=== PATIENT | male | born 1930 | race African-American/Black ===

== ENCOUNTER 2016-10-11 15:54 | Inpatient (IN) | payer MEDICARE, OTHER ==
[~2016-10-11] VITALS: Ht 175.3 cm; Wt 56.7 kg
[2016-10-11] MEDS ORDERED: SODIUM CHLORIDE 0.9% 1000ML BAG (SEPSIS BOLUS) IV ONE (16:45)
[2016-10-11 17:17] LABS: BASOPHILS % 0.3 % (0.0-2.0); HEMATOCRIT. 36.1 % (42.0-52.0); HEMOGLOBIN. 12.4 g/dL (14.0-18.0); LYMPHOCYTES % 10.6 % (20.0-50.0); MEAN CORPUSCULAR HEMOGLOBIN 31.4 pg (28.0-32.0); MEAN CORPUSCULAR VOLUME 91.1 fL (80.0-94.0); MEAN PLATELET VOLUME 7.7 fl (7.4-10.4); MONOCYTES % 10.2 % (2.0-8.0); NEUTROPHILS % 78.9 % (40.0-76.0); PLATELET 169 x1000/uL (130-400); RED BLOOD CELL COUNT 3.96 mill/uL (4.7-6.1); RED CELL DISTRIBUTION WIDTH 14.1 % (11.6-14.6)
[2016-10-11 17:19] LABS: INR 1.1; PROTHROMBIN TIME 11.3 sec (9.4-11.6)
[2016-10-11 17:29] LABS: CARBON DIOXIDE 24 mEq/L (21-32); CHLORIDE 107 mEq/L (98-107); TROPONIN I 0.03 ng/mL (0.00-0.04)
[2016-10-11] MEDS ORDERED: ACETAMINOPHEN 325MG TABLET PO ONE (17:30)
[2016-10-11] MEDS ORDERED: POTASSIUM CHLORIDE 20MEQ TABLET SR PO SCH (19:30)
[2016-10-11] MEDS ORDERED: POTASSIUM CHLORIDE INJ 40 MEQ in DEXT 5% WATER 250 ML IV SCH (19:30)
[2016-10-11 19:33] LABS: CLARITY URINE CLEAR (CLEAR); COLOR URINE YELLOW (YELLOW); GLUCOSE URINE NEGATIVE (NEGATIVE); KETONES URINE NEGATIVE (NEGATIVE); LEUKOCYTE ESTERASE URINE NEGATIVE (NEGATIVE); NITRITE URINE NEGATIVE (NEGATIVE); OCCULT BLOOD URINE NEGATIVE (NEGATIVE); PROTEIN URINE 1+ (NEGATIVE); SPECIFIC GRAVITY URINE 1.013 (1.005-1.030)
[2016-10-11] MEDS ORDERED: DEXT 5%/LACTATED RINGERS 1,000 ML IV ONE (21:15)
[2016-10-11] MEDS ORDERED: NICARDIPINE 50 MG in SODIUM CHLORIDE 0.9% 230 ML IV PRN ×9 (21:15→21:30)
[2016-10-11] MEDS ORDERED: PHENYTOIN SODIUM 100MG/2ML VIAL IV SCH ×2 (22:00)
[2016-10-11 22:31] VITALS: BP 75/50
[2016-10-11 23:30] VITALS: BP 150/88
[2016-10-11 23:47] VITALS: BP 149/72
[2016-10-12] VITALS (82 sets, daily range): BP systolic 99–181; BP diastolic 30–107
[2016-10-12] MEDS ORDERED: NICARDIPINE 100 MG in SODIUM CHLORIDE 0.9% 60 ML IV PRN (04:15)
[2016-10-12] MEDS ORDERED: ACETAMINOPHEN 650MG/20.3ML UDC PO PRN (04:15)
[2016-10-12] MEDS: DEXT 5%/LACTATED RINGERS 1,000 ML IV SCH ×2 (05:13→11:45)
[2016-10-12] MEDS: PHENYTOIN SODIUM 100 MG in SODIUM CHLORIDE 0.9% 100 ML IV SCH ×2 (05:13→13:06)
[2016-10-12 05:56] LABS: HEMATOCRIT 29.2 % (42.0-52.0); HEMOGLOBIN 10.3 g/dL (14.0-18.0); MEAN CORPUSCULAR HEMOGLOBIN 31.5 pg (28.0-32.0); MEAN CORPUSCULAR VOLUME 89.4 fL (80.0-94.0); PLATELET 143 x1000/uL (130-400); RED BLOOD CELL COUNT 3.27 mill/uL (4.7-6.1)
[2016-10-12] MEDS ORDERED: PHENYTOIN SODIUM 100MG/2ML VIAL IV SCH (06:00)
[2016-10-12 06:32] LABS: CARBON DIOXIDE 25 mEq/L (21-32); CHLORIDE 110 mEq/L (98-107)
[2016-10-12] MEDS ORDERED: GELATIN SPONGE,ABSORBABLE SZ 100 ONE (06:45)
[2016-10-12] MEDS ORDERED: POVIDONE-IODINE OINT 28.4GM TOP ONE (06:45)
[2016-10-12] MEDS ORDERED: BACITRACIN 50,000 UNITS/VIAL ONE (06:46)
[2016-10-12] MEDS ORDERED: LIDOCAINE HCL 1%/EPI 1:200,000 30 ML VIAL ONE (06:46)
[2016-10-12] MEDS ORDERED: NORMAL SALINE 0.9% 10 ML SYR ONE (06:46)
[2016-10-12] MEDS ORDERED: THROMBIN (BOVINE) 5000 UNITS/VIAL TOP ONE (06:46)
[2016-10-12] MEDS ORDERED: BACITRACIN ZINC 15GM TUBE TOP ONE (06:46)
[2016-10-12] MEDS ORDERED: POTASSIUM CHLORIDE 20MEQ TABLET SR PO SCH (07:30)
[2016-10-12] MEDS ORDERED: SODIUM CHLORIDE 0.9% 10ML VIAL ONE (07:47)
[2016-10-12] MEDS ORDERED: PHENYLEPHRINE HCL 10 MG/ML 1ML (IV VIAL) IV ONE (07:47)
[2016-10-12] MEDS ORDERED: EPHEDRINE SULFATE 50MG/ML VIAL ONE (07:47)
[2016-10-12] MEDS ORDERED: SUCCINYLCHOLINE CHLORIDE 200MG/10ML VIAL IV ONE (07:47)
[2016-10-12] MEDS ORDERED: PROPOFOL 200MG/20ML VIAL IV ONE (07:47)
[2016-10-12] MEDS ORDERED: LIDOCAINE HCL 1% 20ML VIAL (Pyxis) INJ ONE (07:47)
[2016-10-12] MEDS ORDERED: ROCURONIUM BROMIDE 10MG/ML VIAL 5ML IV ONE (07:47)
[2016-10-12] MEDS ORDERED: CEFAZOLIN SODIUM 1000MG/VIAL ONE (07:48)
[2016-10-12] MEDS ORDERED: POTASSIUM CHLORIDE INJ 40 MEQ in DEXT 5% WATER 250 ML IV SCH (08:00)
[2016-10-12] MEDS ORDERED: DEXAMETHASONE 4MG/ML 1ML VIAL ONE (08:42)
[2016-10-12] MEDS ORDERED: ONDANSETRON HCL 4MG/2ML VIAL ONE (08:42)
[2016-10-12] MEDS ORDERED: NEOSTIGMINE METHYLSULFATE 1MG/ML 10 ML VIAL ONE (09:04)
[2016-10-12] MEDS ORDERED: GLYCOPYRROLATE 0.2 MG/ML 2ML VIAL ONE (09:04)
[2016-10-12] MEDS ORDERED: MORPHINE SULFATE 2 MG/ML CPJ (NOT FOR IM USE) IV PRN (09:45)
[2016-10-12] MEDS: MORPHINE SULFATE 2 MG/ML CPJ (NOT FOR IM USE) IV PRN ×2 (10:22→17:40)
[2016-10-12] MEDS: CEFAZOLIN 1000MG PREMIX 50 ML IV SCH ×2 (13:06→21:00)
[2016-10-12] MEDS ORDERED: PHENYTOIN SODIUM 100MG/2ML VIAL IV ONE ×2 (13:06→14:21)
[2016-10-12] MEDS ORDERED: CEFAZOLIN SODIUM 1000MG/VIAL IV SCH (14:00)
[2016-10-12] MEDS: NICARDIPINE 100 MG in SODIUM CHLORIDE 0.9% 60 ML IV PRN (19:59)
[2016-10-12] MEDS: PHENYTOIN SODIUM 100MG/2ML VIAL IV SCH (21:00)
[2016-10-13] VITALS (80 sets, daily range): BP systolic 74–185; BP diastolic 25–103
[2016-10-13] MEDS: NICARDIPINE 100 MG in SODIUM CHLORIDE 0.9% 60 ML IV PRN (03:14)
[2016-10-13] MEDS: DEXT 5%/LACTATED RINGERS 1,000 ML IV SCH (03:17)
[2016-10-13] MEDS: CEFAZOLIN 1000MG PREMIX 50 ML IV SCH (05:02)
[2016-10-13] MEDS: PHENYTOIN SODIUM 100MG/2ML VIAL IV SCH ×2 (05:02→13:10)
[2016-10-13 06:26] LABS: BASOPHILS % 0.2 % (0.0-2.0); HEMATOCRIT. 30.9 % (42.0-52.0); HEMOGLOBIN. 10.6 g/dL (14.0-18.0); LYMPHOCYTES % 8.9 % (20.0-50.0); MEAN CORPUSCULAR HEMOGLOBIN 31.1 pg (28.0-32.0); MEAN CORPUSCULAR VOLUME 90.7 fL (80.0-94.0); MEAN PLATELET VOLUME 8.4 fl (7.4-10.4); MONOCYTES % 9.6 % (2.0-8.0); NEUTROPHILS % 81.3 % (40.0-76.0); PLATELET 156 x1000/uL (130-400); RED BLOOD CELL COUNT 3.41 mill/uL (4.7-6.1); RED CELL DISTRIBUTION WIDTH 14.1 % (11.6-14.6)
[2016-10-13 07:23] LABS: CARBON DIOXIDE 24 mEq/L (21-32); CHLORIDE 114 mEq/L (98-107)
[2016-10-13] MEDS: POTASSIUM CHLORIDE 20MEQ TABLET SR PO SCH (09:07)
[2016-10-13] MEDS ORDERED: CELL2 PO (17:01)
[2016-10-13] MEDS ORDERED: NIACINAMIDE PO (17:01)
[2016-10-13] MEDS ORDERED: ATOR40TA70 PO (17:01)
[2016-10-13] MEDS ORDERED: RANI150C12 PO (17:01)
[2016-10-13] MEDS ORDERED: LORAZEPAM 2MG/ML CPJ IV NR (23:04)
[2016-10-13] MEDS: MORPHINE SULFATE 2 MG/ML CPJ (NOT FOR IM USE) IV PRN (23:13)
[2016-10-13] MEDS: PHENYTOIN SODIUM EXTENDED 100MG CAPSULE PO SCH (23:35)
[2016-10-14] VITALS (74 sets, daily range): BP systolic 105–195; BP diastolic 49–146
[2016-10-14] MEDS: NICARDIPINE 100 MG in SODIUM CHLORIDE 0.9% 60 ML IV PRN (00:51)
[2016-10-14] MEDS: DEXT 5%/LACTATED RINGERS 1,000 ML IV SCH ×2 (02:27→15:00)
[2016-10-14] MEDS ORDERED: DILTIAZEM HCL 125 MG in DEXT 5% WATER 100 ML IV PRN (03:00)
[2016-10-14 05:59] LABS: BASOPHILS % 0.4 % (0.0-2.0); EOSINOPHILS % 0.1 % (0.0-5.0); HEMATOCRIT. 32.7 % (42.0-52.0); HEMOGLOBIN. 11.5 g/dL (14.0-18.0); LYMPHOCYTES % 12.3 % (20.0-50.0); MEAN CORPUSCULAR HEMOGLOBIN 31.8 pg (28.0-32.0); MEAN CORPUSCULAR VOLUME 90.2 fL (80.0-94.0); MEAN PLATELET VOLUME 8.4 fl (7.4-10.4); MONOCYTES % 10.8 % (2.0-8.0); NEUTROPHILS % 76.4 % (40.0-76.0); PLATELET 170 x1000/uL (130-400); RED BLOOD CELL COUNT 3.62 mill/uL (4.7-6.1); RED CELL DISTRIBUTION WIDTH 13.9 % (11.6-14.6)
[2016-10-14] MEDS: PHENYTOIN SODIUM EXTENDED 100MG CAPSULE PO SCH ×4 (06:00→22:15)
[2016-10-14 06:32] LABS: CARBON DIOXIDE 27 mEq/L (21-32); CHLORIDE 112 mEq/L (98-107)
[2016-10-14] MEDS: MORPHINE SULFATE 2 MG/ML CPJ (NOT FOR IM USE) IV PRN (06:52)
[2016-10-14] MEDS ORDERED: POTASSIUM CHLORIDE INJ 40 MEQ in SODIUM CHLORIDE 0.9% 250 ML IV SCH (09:30)
[2016-10-14] MEDS: POTASSIUM CHLORIDE 20MEQ TABLET SR PO SCH (09:49)
[2016-10-14] MEDS: DOCUSATE SODIUM SUGAR FREE 100MG/10ML UDC NG SCH (10:30)
[2016-10-15] VITALS (62 sets, daily range): BP systolic 82–165; BP diastolic 46–94
[2016-10-15 05:25] LABS: BASOPHILS % 0.3 % (0.0-2.0); EOSINOPHILS % 1.3 % (0.0-5.0); HEMATOCRIT. 31.8 % (42.0-52.0); HEMOGLOBIN. 10.9 g/dL (14.0-18.0); LYMPHOCYTES % 24.1 % (20.0-50.0); MEAN CORPUSCULAR HEMOGLOBIN 31.3 pg (28.0-32.0); MEAN PLATELET VOLUME 8.1 fl (7.4-10.4); MONOCYTES % 14.9 % (2.0-8.0); NEUTROPHILS % 59.4 % (40.0-76.0); PLATELET 167 x1000/uL (130-400); RED BLOOD CELL COUNT 3.49 mill/uL (4.7-6.1)
[2016-10-15] MEDS: PHENYTOIN SODIUM EXTENDED 100MG CAPSULE PO SCH ×3 (05:46→21:13)
[2016-10-15 05:49] LABS: CARBON DIOXIDE 25 mEq/L (21-32); CHLORIDE 114 mEq/L (98-107)
[2016-10-15] MEDS: DEXT 5%/LACTATED RINGERS 1,000 ML IV SCH (06:41)
[2016-10-15] MEDS: NICARDIPINE 100 MG in SODIUM CHLORIDE 0.9% 60 ML IV PRN (06:50)
[2016-10-15] MEDS: POTASSIUM CHLORIDE 20MEQ TABLET SR PO SCH (08:34)
[2016-10-15] MEDS: DOCUSATE SODIUM SUGAR FREE 100MG/10ML UDC NG SCH (08:34)
[2016-10-15] MEDS ORDERED: POTASSIUM CHLORIDE INJ 40 MEQ in DEXT 5% WATER 250 ML IV SCH (11:00)
[2016-10-16] VITALS (69 sets, daily range): BP systolic 65–180; BP diastolic 35–128
[2016-10-16] MEDS: DEXT 5%/LACTATED RINGERS 1,000 ML IV SCH (04:26)
[2016-10-16] MEDS: PHENYTOIN SODIUM EXTENDED 100MG CAPSULE PO SCH ×3 (05:10→22:12)
[2016-10-16] MEDS: POTASSIUM CHLORIDE 20MEQ TABLET SR PO SCH (09:37)
[2016-10-16] MEDS: DOCUSATE SODIUM SUGAR FREE 100MG/10ML UDC NG SCH (09:38)
[2016-10-16] MEDS ORDERED: HYDROCORTISONE 1% RECTAL CREAM 30GM PR PRN (12:30)
[2016-10-16] MEDS ORDERED: HYDROCODONE/ACETAMINOPHEN 5/325MG TABLET PO PRN (12:30)
[2016-10-17] VITALS (22 sets, daily range): BP systolic 107–139; BP diastolic 34–92
[2016-10-17] MEDS: PHENYTOIN SODIUM EXTENDED 100MG CAPSULE PO SCH ×3 (05:41→21:01)
[2016-10-17] MEDS: DOCUSATE SODIUM SUGAR FREE 100MG/10ML UDC NG SCH (09:00)
[2016-10-17] MEDS: POTASSIUM CHLORIDE 20MEQ TABLET SR PO SCH ×2 (09:00→12:50)
[2016-10-17 11:48] LABS: CARBON DIOXIDE 27 mEq/L (21-32); CHLORIDE 108 mEq/L (98-107)
[2016-10-17] MEDS ORDERED: DEXTROSE 50% WATER 50ML SYRINGE IV PRN (12:15)
[2016-10-17] MEDS: BLOOD SUGAR DIAGNOSTIC STRIP TEST SCH ×2 (12:49→17:07)
[2016-10-17] MEDS ORDERED: HYDROCORTISONE 1% CREAM 30GM TOP PRN (13:45)
[2016-10-17] MEDS: INSULIN LISPRO 100 UNITS/ML SUBCUT SCH ×2 (17:00→20:53)
[2016-10-18] VITALS: BP 129/70
[2016-10-18 04:00] VITALS: BP 143/81
[2016-10-18 04:19] LABS: BASOPHILS % 0.6 % (0.0-2.0); EOSINOPHILS % 0.8 % (0.0-5.0); HEMATOCRIT. 30.1 % (42.0-52.0); HEMOGLOBIN. 10.6 g/dL (14.0-18.0); LYMPHOCYTES % 19.9 % (20.0-50.0); MEAN CORPUSCULAR HEMOGLOBIN 31.3 pg (28.0-32.0); MEAN CORPUSCULAR VOLUME 89.4 fL (80.0-94.0); MEAN PLATELET VOLUME 7.7 fl (7.4-10.4); MONOCYTES % 11.3 % (2.0-8.0); NEUTROPHILS % 67.4 % (40.0-76.0); PLATELET 208 x1000/uL (130-400); RED BLOOD CELL COUNT 3.37 mill/uL (4.7-6.1); RED CELL DISTRIBUTION WIDTH 13.8 % (11.6-14.6)
[2016-10-18 04:29] LABS: CARBON DIOXIDE 27 mEq/L (21-32); CHLORIDE 112 mEq/L (98-107)
[2016-10-18] MEDS: PHENYTOIN SODIUM EXTENDED 100MG CAPSULE PO SCH (06:01)
[2016-10-18] MEDS: BLOOD SUGAR DIAGNOSTIC STRIP TEST SCH ×2 (06:52→12:23)
[2016-10-18] MEDS: INSULIN LISPRO 100 UNITS/ML SUBCUT SCH ×2 (07:10→12:23)
[2016-10-18 08:00] VITALS: BP 133/87
[2016-10-18] MEDS: DOCUSATE SODIUM SUGAR FREE 100MG/10ML UDC NG SCH (08:20)
[2016-10-18] MEDS: POTASSIUM CHLORIDE 20MEQ TABLET SR PO SCH (08:22)
[2016-10-18] MEDS ORDERED: POTASSIUM CHLORIDE 20MEQ TABLET SR PO SCH (09:15)
[2016-10-18 10:58] VITALS: BP 133/87
[2016-10-18 12:00] VITALS: BP 128/79
== END 2016-10-18 14:12 | DRG 25 ==
LOC: ER 17:03 → EDBEDREQSVC 19:46 → EDBEDREQ 19:46 → ENRESERV 20:26 → MICUSO 21:26 → EDBEDREQTM 21:29 → EDBEDREQ 21:29 → 6EST 10-17 22:10
PROVIDERS: ADMIT Internal Medicine Nephrology; ATTEND Internal Medicine Nephrology
PROC: 00C40ZZ Extirpation of Matter from Intracranial Subdural Space, Open Approach (ICD-10-PCS; principal; 2016-10-16)
PROC: 00U207Z Supplement Dura Mater with Autologous Tissue Substitute, Open Approach (ICD-10-PCS; 2016-10-16)
PROC: 00H002Z Insertion of Monitoring Device into Brain, Open Approach (ICD-10-PCS; 2016-10-16)
PROC: 4A103BD Monitoring of Intracranial Pressure, Percutaneous Approach (ICD-10-PCS; 2016-10-16)
DX: S06.5X9A Traumatic subdural hemorrhage with loss of consciousness of unspecified duration, initial encounter (principal); E43 Unspecified severe protein-calorie malnutrition; G93.40 Encephalopathy, unspecified; D64.9 Anemia, unspecified; E11.9 Type 2 diabetes mellitus without complications; F03.90 Unspecified dementia, unspecified severity, without behavioral disturbance, psychotic disturbance, mood disturbance, and anxiety; G96.0 Cerebrospinal fluid leak; Z68.1 Body mass index [BMI] 19.9 or less, adult; R13.19 Other dysphagia; E87.6 Hypokalemia; I10 Essential (primary) hypertension; R74.0 Nonspecific elevation of levels of transaminase and lactic acid dehydrogenase [LDH]; D32.9 Benign neoplasm of meninges, unspecified; E80.6 Other disorders of bilirubin metabolism; W19.XXXA Unspecified fall, initial encounter; R26.2 Difficulty in walking, not elsewhere classified; Z86.73 Personal history of transient ischemic attack (TIA), and cerebral infarction without residual deficits; Y93.89 Activity, other specified; Y92.89 Other specified places as the place of occurrence of the external cause; Y99.8 Other external cause status
CPT/HCPCS: 36415; 70450; 71010; 80048; 80053; 81001; 82962; 83605; 84132; 84484; 85025; 85027; 85610; 86850; 86900; 87040; 87086; 88304; 92610; 93005; 93970; 96361; 96374; 96375; 97110; 97112; 97116; 97163; 97167; 97530; 99291; A4216; C1713; C1893; J0171; J0330; J0690; J1100; J1165; J1815; J2060; J2270; J2370; J2405; J2704; J2710; J3480; J3490; J7030; J7050; J7060; J7121